=== PATIENT | female | born 1985 | race Caucasian/White ===

== ENCOUNTER 2017-06-28 08:12 | Emergency (ER) | payer BC ==
--- NOTE | 2017-06-28 09:43 | RAD REPORT ---
EXAM DESCRIPTION: RAD - Chest Single View - 06/28/2017 9:04 am CLINICAL HISTORY: Chest pain COMPARISON: May 2015 TECHNIQUE: AP portable chest image was obtained 0853 hours . FINDINGS: Lungs are clear. Heart and vasculature are normal. No measurable pleural effusion and no p neumothorax. No gross bony abnormality seen. No acute aortic findings suspected. IMPRESSION: No acute cardiopulmonary process. No significant interval change.
[2017-06-28 09:44] LABS: Protime INR 0.97
[2017-06-28 09:45] LABS: Absolute Lymphocytes (CBC) 1.9 K/uL (0.7-4.9); Absolute Monocytes 0.5 K/uL (0.1-1.3); Absolute Neutrophil 6.1 K/uL (1.8-8.0); Basophils % 0.5 % (0-1.3); Eosinophils % 1.4 % (0-4.4); Hematocrit 43.4 % (36.0-45.0); Lymphocytes % 21.4 % (15.3-44.8); MCH 29.7 pg (27.0-35.0); MCV 87.6 fL (80-100); MPV 8.6 fL (7.6-11.3); Monocytes % 6.2 % (3.3-12.3); RBC Red Blood Cell Count 4.95 M/uL (3.86-4.86)
[2017-06-28 10:00] LABS: Potassium 3.7 mEq/L (3.6-5.0)
[2017-06-28 10:06] LABS: Albumin 4.3 g/dL (3.2-5.5); Bilirubin Direct 0.2 mg/dL (0-0.2); Bilirubin Total 1.3 mg/dL (0.3-1.2); Magnesium 1.8 mg/dL (1.8-2.5); Protein, Total 6.8 g/dL (6.0-8.3)
[2017-06-28 10:08] LABS: CKMB Creatine Kinase MB 3.1 ng/ml (0.3-4.0)
--- NOTE | 2017-06-28 10:52 | EDPHYS ---
Physician Documentation [facility] Name: Dione Dick Age: 32 yrs Sex: Female : 1985 Arrival Date: 06/28/2017 Time: 08:34 Bed 2 Private MD: ED Physician Geo Golden HPI: 06/28 15:27 This 32 yrs old Female presents to ER via Ambulatory with complaints of Chest kdr Tightness. 15:27 The patient presents with a history of heart racing. Context: The symptoms occur at kdr rest, with anxiety, without known cause. Onset: The symptoms/episode began/occurred gradually, 2 month(s) ago. Duration: The patient or guardian reports multiple episodes, that are intermittent, that wax and wane, with no pattern, Usually do not last as long as today. Modifying factors: The symptoms are aggravated by nothing. Possible anxiety The symptoms are alleviated by nothing. Associated signs and symptoms: The patient has no apparent associated signs or symptoms. Severity of symptoms: At their worst the symptoms were mild in the emergency department the symptoms are unchanged. The patient has experienced similar episodes in the past, multiple times, but today's symptoms are worse, lasting longer. The patient has not recently seen a physician. 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 - Social history:: Smoking status: Patient/guardian denies using tobacco. ROS: 15:27 Constitutional: Negative for fever, chills, and weight loss, Eyes: Negative for injury, kdr pain, redness, and discharge, ENT: Negative for injury, pain, and discharge, Neck: Negative for injury, pain, and swelling, Respiratory: Negative for shortness of breath, cough, wheezing, and pleuritic chest pain, Abdomen/GI: Negative for abdominal pain, nausea, vomiting, diarrhea, and constipation, Back: Negative for injury and pain, : Negative for injury, bleeding, discharge, and swelling, MS/Extremity: Negative for injury and deformity, Skin: Negative for injury, rash, and discoloration, Neuro: Negative for headache, weakness, numbness, tingling, and seizure activity. Psych: Negative for depression, anxiety, suicide ideation, homicidal ideation, and hallucinations, Allergy/Immunology: Negative for hives, rash, and allergies, Endocrine: Negative for neck swelling, polydipsia, polyuria, polyphagia, and marked weight changes, Hematologic/Lymphatic: Negative for swollen nodes, abnormal bleeding, and unusual bruising. 15:27 Cardiovascular: Positive for palpitations, Negative for chest pain, edema, orthopnea, paroxysmal nocturnal dyspnea, acute changes. Exam: 15:27 Constitutional: This is a well developed, well nourished patient who is awake, alert, kdr and in no acute distress. Head/Face: Normocephalic, atraumatic. Eyes: Pupils equal round and reactive to light, extra-ocular motions intact. Lids and lashes normal. Conjunctiva and sclera are non-icteric and not injected. Cornea within normal limits. Periorbital areas with no swelling, redness, or edema. Neck: Trachea midline, no thyromegaly or masses palpated, and no cervical lymphadenopathy. Supple, full range of motion without nuchal rigidity, or vertebral point tenderness. No Meningismus. Chest/axilla: Normal chest wall appearance and motion. Nontender with no deformity. No lesions are appreciated. Cardiovascular: Regular rate and rhythm with a normal S1 and S2. No gallops, murmurs, or rubs. Normal PMI, no JVD. No pulse deficits. Respiratory: Lungs have equal breath sounds bilaterally, clear to auscultation and percussion. No rales, rhonchi or wheezes noted. No increased work of breathing, no retractions or nasal flaring. Abdomen/GI: Soft, non-tender, with normal bowel sounds. No distension or tympany. No guarding or rebound. No evidence of tenderness throughout. Back: No spinal tenderness. No costovertebral tenderness. Full range of motion. Skin: Warm, dry with normal turgor. Normal color with no rashes, no lesions, and no evidence of cellulitis. MS/ Extremity: Pulses equal, no cyanosis. Neurovascular intact. Full, normal range of motion. Neuro: Awake and alert, GCS 15, oriented to person, place, time, and situation. Cranial nerves II-XII grossly intact. Motor strength 5/5 in all extremities. Sensory grossly intact. Cerebellar exam normal. Normal gait. Psych: Awake, alert, with orientation to person, place and time. Behavior, mood, and affect are within normal limits. The patient may be slight anxious but it is not overt. Vital Signs: 08:43 BP 129 / 88; Pulse 85; Resp 18; Temp 97.8; Pulse Ox 100% on R/A; Weight 74.84 kg; ph Height 5 ft. 1 in. (154.94 cm); Pain 6/10; 09:36 BP 120 / 73; Pulse 80; Resp 16; Pulse Ox 100% on R/A; Pain 5/10; hb 10:22 BP 122 / 78; Pulse 81; Resp 18; Pulse Ox 98% on R/A; ph 11:16 BP 119 / 78; Pulse 81; Resp 18; Temp 97.9; Pulse Ox 99% on R/A; ph 08:43 Body Mass Index 31.18 (74.84 kg, 154.94 cm) ph MDM: 10:51 Patient medically screened. kdr 15:27 Data reviewed: vital signs, nurses notes, lab test result(s), EKG, radiologic studies. kdr Counseling: I had a detailed discussion with the patient and/or guardian regarding: the historical points, exam findings, and any diagnostic results supporting the discharge/admit diagnosis, lab results, radiology results, the need for outpatient follow up. 06/28 08:50 Order name: Basic Metabolic Panel; Complete Time: 10:14 ph 06/28 08:50 Order name: BNP; Complete Time: 10:50 ph 06/28 08:50 Order name: CBC with Diff; Complete Time: 10:14 ph 06/28 08:50 Order name: Ckmb; Complete Time: 10:14 ph 06/28 08:50 Order name: CPK; Complete Time: 10:14 ph 06/28 08:50 Order name: LFT's; Complete Time: 10:14 ph 06/28 08:50 Order name: Magnesium; Complete Time: 10:14 ph 06/28 08:50 Order name: PT-INR; Complete Time: 10:14 ph 06/28 08:50 Order name: Ptt, Activated; Complete Time: 10:14 ph 06/28 08:50 Order name: Troponin (emerg Dept Use Only); Complete Time: 10:14 ph 06/28 08:50 Order name: XRAY Chest (1 view); Complete Time: 10:14 ph 06/28 08:50 Order name: EKG; Complete Time: 08:50 ph 06/28 08:50 Order name: Cardiac monitoring; Complete Time: 08:50 ph 06/28 08:50 Order name: EKG - Nurse/Tech; Complete Time: 08:50 ph 06/28 08:50 Order name: IV Saline Lock; Complete Time: 08:50 ph 06/28 08:50 Order name: Labs collected and sent; Complete Time: 08:51 ph 06/28 08:50 Order name: O2 Per Protocol; Complete Time: 08:50 ph 06/28 08:50 Order name: O2 Sat Monitoring; Complete Time: 08:50 ph Administered Medications: No medications were administered Disposition: 06/28/17 10:51 Discharged to Home. Impression: Palpitations, Anxiety disorder, unspecified. - Condition is Stable. - Discharge Instructions: Palpitations, [id number]. - Medication Reconciliation Form, Thank You Letter, Work release form form. - Follow up: Private Physician; When: 2 - 3 days; Reason: If symptoms return, Further diagnostic work-up, Recheck today's complaints, Continuance of care, Re-evaluation by your physician. - Problem is an ongoing problem. - Symptoms have improved. Signatures: Dispatcher [employer] Geo Jimenez MD MD kdr Hall, Patricia RN RN ph
--- NOTE | 2017-06-28 10:52 | ER ---
Nurse's Notes [facility] Name: Dione Dick Age: 32 yrs Sex: Female : 1985 Arrival Date: 06/28/2017 Time: 08:34 Bed 2 Private MD: Diagnosis: Palpitations;Anxiety disorder, unspecified Presentation: 06/28 08:42 Presenting complaint: Patient states: " I am having chest pressure. It started last ph night." Pt reports pressure in center of chest, denies SOB or N/V. Transition of care: patient was not received from another setting of care. Onset of symptoms was June 28, 2017. Care prior to arrival: None. 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 - Social history:: Smoking status: Patient/guardian denies using tobacco. Screenin:47 Abuse screen: Denies threats or abuse. Denies injuries from another. Nutritional ph screening: No deficits noted. Tuberculosis screening: No symptoms or risk factors identified. Fall Risk None identified. Assessment: 08:45 General: Appears in no apparent distress. comfortable, well groomed, Behavior is calm, ph cooperative, appropriate for age, Denies fever, feeling ill. Pain: Complains of pain in xyphoid area and mid-sternal area Pain radiates to diaphragm Quality of pain is described as pressure, Pain began suddenly, "last night". Neuro: Level of Consciousness is awake, alert, obeys commands, Oriented to person, place, time, situation. Cardiovascular: Reports chest pain, Denies lightheadedness, nausea, shortness of breath, vomiting, Capillary refill < 3 seconds Patient's skin is warm and dry. Rhythm is sinus rhythm Chest pain quality is pressure, is located in substernal area. Respiratory: Airway is patent Respiratory effort is even, unlabored, Respiratory pattern is regular, symmetrical. GI: No signs and/or symptoms were reported involving the gastrointestinal system. Derm: Skin is intact, is healthy with good turgor, Skin is pink, warm \\T\\ dry. Musculoskeletal: Circulation, motion, and sensation intact. Range of motion: intact in all extremities. 09:36 Reassessment: Patient appears in no apparent distress at this time. No changes from hb previously documented assessment. Patient and/or family updated on plan of care and expected duration. Pain level reassessed. Patient is alert, oriented x 3, equal unlabored respirations, skin warm/dry/pink. 10:21 Reassessment: Patient appears in no apparent distress at this time. Patient and/or ph family updated on plan of care and expected duration. Pain level reassessed. Patient is alert, oriented x 3, equal unlabored respirations, skin warm/dry/pink. Pt ambulated to restroom, gait steady, awaiting reevaluation by provider. 11:15 Reassessment: Patient appears in no apparent distress at this time. Patient and/or ph family updated on plan of care and expected duration. Pain level reassessed. Patient is alert, oriented x 3, equal unlabored respirations, skin warm/dry/pink. Pt discharged home. Vital Signs: 08:43 BP 129 / 88; Pulse 85; Resp 18; Temp 97.8; Pulse Ox 100% on R/A; Weight 74.84 kg; ph Height 5 ft. 1 in. (154.94 cm); Pain 6/10; 09:36 BP 120 / 73; Pulse 80; Resp 16; Pulse Ox 100% on R/A; Pain 5/10; hb 10:22 BP 122 / 78; Pulse 81; Resp 18; Pulse Ox 98% on R/A; ph 11:16 BP 119 / 78; Pulse 81; Resp 18; Temp 97.9; Pulse Ox 99% on R/A; ph 08:43 Body Mass Index 31.18 (74.84 kg, 154.94 cm) ph ED Course: 08:34 Patient arrived in ED. [id number] 08:42 Geo Golden MD is Attending Physician. kdr 08:42 Rachel Garcia, ISA is Primary Nurse. ph 08:43 Triage completed. ph 08:45 Arm band placed on. EKG completed in triage. Results shown to MD. ph 08:45 Inserted saline lock: 20 gauge in right antecubital area, using aseptic technique. ph Blood collected. Patient maintains SpO2 saturation greater than 95% on room air. 08:48 Patient has correct armband on for positive identification. Placed in gown. Bed in low ph position. Call light in reach. Side rails up X 1. motor vehicle compliance analyst on. Pulse ox on. NIBP on. Warm blanket given. 09:01 X-ray completed. Portable x-ray completed in exam room. Patient tolerated procedure jb2 well. 09:03 XRAY Chest (1 view) In Process Unspecified. EDMS 11:15 No provider procedures requiring assistance completed. IV discontinued, intact, ph bleeding controlled, No redness/swelling at site. Pressure dressing applied. Administered Medications: No medications were administered Outcome: 10:51 Discharge ordered by . kdr 11:15 Discharged to home ambulatory. ph 11:15 Condition: good 11:15 Discharge instructions given to patient, Instructed on discharge instructions, follow up and referral plans. Demonstrated understanding of instructions, follow-up care. 11:16 Patient left the ED. ph Signatures: Dispatcher [employer] EDCT Geo Golden MD MD [facility] Misael Salcedo [id number] Rachel Garcia, RN RN Freda Crooks RN RN Aby Pereira [id number]
--- NOTE | 2017-06-30 12:55 | EKG ---
Test Date: 2017-06-28 Test Time: 08:39:13 Grant Manager: ALFREDO MEASUREMENT RESULTS: Intervals: Rate: 81 [place]: 130 QRSD: 76 QT: 376 QTc: 436 Donie: P: 44 [place]: 130 QRS: 69 T: 24 INTERPRETIVE STATEMENTS: Normal sinus rhythm with sinus arrhythmia Normal ECG No previous ECG available for comparison Electronically Signed On 06-30-17 12:54:56 CDT by David Monsivais
== END 2017-06-28 11:16 | disposition home or self-care (01) ==
LOC: ER 08:12
DX: F41.9 Anxiety disorder, unspecified (principal)
CPT/HCPCS: 36415; 71045; 80048; 80076; 82550; 82553; 83735; 83880; 84484; 85025; 85610; 85730; 93005; 99285